=== PATIENT | male | born 1980 | race Caucasian/White ===

== ENCOUNTER 2019-11-17 10:45 | Emergency (ER) | payer BC, SELFPAY ==
[2019-11-17] VITALS (19 sets, daily range): BP systolic 103–118; BP diastolic 58–80; PULSE 71–94; RESP 11–25; TEMP 36.7; O2SAT 97–100
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
[2019-11-17] MEDS: Omnipaque 350 MG/ML 100 ML BTL IJ (11:00)
[2019-11-17] MEDS: Normal Saline Flush 10 ML SYR IVP (11:01)
[2019-11-17 11:04] LABS: Abs Immature Grans 0.06 k/cumm (0.0-0.09); Absolute Basophil Count 0.01 k/cumm (0.0-0.2); Absolute Eosinophil Count 0.06 k/cumm (0.0-0.7); Absolute Lymphocyte Count 0.63 k/cumm (1.2-3.4); Absolute Monocyte Count 0.59 k/cumm (0.11-0.7); Absolute Neutrophil Count 7.84 k/cumm (1.2-6.7); Basophils % 0.1; Eosinophils % 0.7; HCT 41.1 % (40.0-50.0); Immature Grans % 0.7 %; Lymphocytes % 6.9; Mean Corp. HGB Concentration 34.1 g/dL (32.0-36.0); Mean Corpuscular Hemoglobin 31.7 pg (27.0-33.0); Mean Corpuscular Volume 93.2 fL (80-95); Mean Platelet Volume 10.1 fL (8.0-11.0); Monocytes % 6.4; Neutrophils % 85.2; Platelet Count 174 x1000/uL (130-400); RBC 4.41 m/cumm (4.50-6.00); RBC Distribution Width 12.2 % (11.8-14.1); White Blood Cell Count 9.19 k/cumm (4.4-10.8)
[2019-11-17 11:15] LABS: ALT 45 U/L (16-63); AST 59 U/L (15-37); Albumin 3.6 g/dL (3.4-5.0); Alkaline Phosphatase 46 U/L (46-116); Anion Gap 7.5 mmol/L (3-11); BUN 23 mg/dL (7-18); Bilirubin, Total 0.6 mg/dL (0.2-1.0); CO2 27.5 mmol/L (21.0-32.0); CREATININE 0.95 mg/dL (0.70-1.30); Chloride 106 mmol/L (98-107); Glucose 92 mg/dL (74-106); Potassium 3.9 mmol/L (3.5-5.1); Sodium 141 mmol/L (136-145); Total Protein 6.1 g/dL (6.4-8.2)
[2019-11-17] MEDS: Lactated Ringers 1,000 ML 150 ML IV (11:24)
[2019-11-17] MEDS: fentaNYL 100 MCG/2 ML VIAL 50 MCG IVP ×2 (11:29→12:41)
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
== END 2019-11-17 13:00 | disposition home or self-care (01) ==
PROVIDERS: Emergency Provider Student in an Organized Health Care Education/Training Program
DX: S12.290A Other displaced fracture of third cervical vertebra, initial encounter for closed fracture (principal); S22.040A Wedge compression fracture of fourth thoracic vertebra, initial encounter for closed fracture; S22.22XA Fracture of body of sternum, initial encounter for closed fracture; V18.0XXA Pedal cycle driver injured in noncollision transport accident in nontraffic accident, initial encounter; Y93.55 Activity, bike riding; R20.2 Paresthesia of skin
CPT/HCPCS: 36415; 74177; 80053; 86850; 86900; 86901; 93005; 96361; 96374; 96376; 99285; 70450; 71260; 72125; 85025; 93010; J3010; J3490